=== PATIENT | male | born 1955 | race Two or more races ===

== ENCOUNTER 2022-08-13 14:12 | Emergency (ER) | payer OTHER ==
[~2022-08-13] VITALS: Ht 175.3 cm; Wt 100.0 kg
[2022-08-13 15:50] VITALS: BP 161/79
[2022-08-13] MEDS ORDERED: IBUP800T27 PO ×2 (17:19)
[2022-08-13] MEDS ORDERED: METH750T22 PO (17:19)
[2022-08-13] MEDS ORDERED: IBUPROFEN 800 MG TAB PO ONE (17:30)
== END 2022-08-13 17:47 | disposition home or self-care (01) ==
LOC: EDBD 14:12 → ER 14:12
DX: S46.911A Strain of unspecified muscle, fascia and tendon at shoulder and upper arm level, right arm, initial encounter (principal); V49.9XXA Car occupant (driver) (passenger) injured in unspecified traffic accident, initial encounter; Y93.89 Activity, other specified; Y92.89 Other specified places as the place of occurrence of the external cause; Y99.8 Other external cause status
CPT/HCPCS: 72040; 73030

== ENCOUNTER 2025-03-12 14:12 | Inpatient (IN) | payer OTHER ==
[~2025-03-12] VITALS: Ht 175.3 cm; Wt 113.3 kg
[~2025-03-12 14:12] MED LIST: AMIT-238 PO; DONE1TAB88 PO; EZET-10 PO; MEMA1TAB5 PO; METH-1182 PO; PROP1TAB51 PO; SUMA100T15 PO
--- NOTE | 2025-03-12 14:51 | ED.PDOC ---
HPI (NEURO) HPI Comments HPI: Poor Historian. 70-year-old male brought in by ambulance from home for evaluation of 1 hour of feeling dizzy when he was standing up. Patient describes the dizziness as everything spinning around him. Patient at that time denied any shortness of breath. He only complained of generalized weakness. Denies any chest pain. EMS initial vital signs blood pressure was 103/69. Heart rate 124. Patient's pulse ox was 86% at room air. Patient has history of COPD not on oxygen at home. They placed him on 2 L supplemental oxygen which improved his pulse ox to 99%. We tried to have the patient get up from the [facility] to see if he is still having these symptoms. He attempted to get up and he felt that everything is spinning around him. Past Medical History: CVA with dysphagia and abnormal gait, dementia, Past Surgical History: Allergies to Lipitor. REVIEW OF SYSTEMS: CONSTITUTIONAL: Denies acute: fever, diaphoresis, chills, HEAD: Denies acute: headache, photophobia Eyes: Denies acute: Double vision, vision loss, eye pain, eye discharge. EARS: Denies acute: tinnitus, hearing loss, ear discharge, ear pain, THROAT: Denies acute: sore throat, swelling, difficulty swallowing , pain with swallowing, change in voice. NECK: Denies acute: neck pain, neck swelling, stiff neck. HEART: Denies acute : chest pain, palpitations, LUNGS: Denies acute: SOB, wheezing, cough, hemoptysis ABDOMEN: Denies acute: abdominal pain, Nausea, Vomiting, diarrhea, melena , hematemesis, hematochezia SKIN: Denies acute: rash, redness, lesions, itchiness. EXTREMITIES: Denies acute: calf pain, numbness, tingling, weakness, denies pain in extremity. Denies acute: Low back pain. Neuro: Denies acute: focal neurological deficit, motor or sensory focal neurological deficit, tremors, seizure like activity, confusion, change in mental status, loss of bowel or bladder function, cauda equina like symptoms. : Denies acute: dysuria, hematuria, flank pain, increase in urinary frequency. PSYCH: Denies acute: hallucination, suicidal ideation, homicidal ideation. PHYSICAL EXAM: General: ----mild----acute distress, awake and alert. Head: normocephalic, atraumatic. Neck: supple, trachea is midline, no swelling. History of aphasia status post CVA Throat: Normal phonation. Eyes:, no erythema, no purulent discharge, no proptosis, no icterus. Heart: regular rate, regular rhythm, no significant murmur appreciated. Lungs: no apparent respiratory distress, Able to speak in full sentences. No wheezing, no rhonchi, no crackles. No stridors Clear to auscultation bilaterally. Abdomen: non tender to palpation, non distended, soft, no guarding, no rebound, + bowel sounds. Obese Neuro: Awake, Alert, oriented to name, self, situation, follows commands. GCS=15. Speech is normal. Skin: no petechia, no purpura, no cyanosis, non-pale, not jaundice. Lower extremities: --trace bilateral - Pitting edema no deformity, no focal swelling, no calf TTP. Makes eye contact. moves all four extremities. Face: no apparent facial droop. No nystagmus. No nuchal rigidity, Kernig's sign, Brudzinski's sign, no meningeal signs. ED COURSE: DISCLAIMER: This medical document was created using an electronic medical record system with voice recognition software and computerized dictation system. Although this document has been carefully reviewed, there might still be some phonetic and typographical errors. Occasional wrong-word or "sound-alike" substitutions may have occurred due to the inherent limitations of voice recognition software. These areas are purely typographical due to imperfections of the software programs and do not reflect any compromise in the patient's medical care. Please read the chart carefully and recognize, using context, where these substitutions have occurred. Chief Complaint: General Weakness Time Seen by MD: 14:31 Reviewed Notes: Nurses Notes, Medications, Allergies Information Source: Patient, Emergency Med Personnel Mode of Arrival: EMS Severity: Moderate Headache Severity: None Timing: Hours Duration: Since onset Prehospital treatment: None Past Medical History PAST MEDICAL HISTORY: Denies Surgical History: Denies all surgeries Family History Family History: Reviewed,noncontributory to illness Social History Smoker: Non-Smoker Alcohol: Denies ETOH Use Drugs: Denies Drug Use Lives In: Home Was a procedure done? Was a procedure done?: No Differential Diagnosis (SZ) General Weakness: Anemia, CVA, Dehydration, Electrolyte imbalance, Encephalopathy, Hypoglycemia, Hypotension, Hypovolemia, Labyrinthitis, Meniere's disease, Myasthenia gravis, Myocardial infarction, Pulmonary embolus, Renal failure, Repiratory failure, TIA, VBI, Vertigo: central, Vertigo: peripheral, Vestibular neuronitis, Other (Includes but not limited to thyroid disease, encephalopathy, electrolyte abnormality, sepsis, infection, intracranial pathology, drug adverse effects, arrhythmia, kidney insufficiency, ACS, CVA, malignancy, anemia) X-Ray, Labs, Meds, VS Vital Signs Date Time Temp Pulse Resp B/P (MAP) Pulse Ox O2 Delivery O2 Flow Rate FiO2 03/12/25 20:43 98.6 89 15 95/57 (70) 94 98.6 03/12/25 17:30 99.2 102 18 99/51 (67) 93 99.2 03/12/25 15:11 97/51 (66) 03/12/25 15:04 97.8 109 16 86/57 (67) 90 97.8 03/12/25 14:24 99.3 115 16 106/81 94 99.3 03/12/25 14:14 109 Lab Test 03/12/25 18:31 03/12/25 17:41 03/12/25 17:11 03/12/25 16:52 Range/Units Troponin I High Sensitivity < 3 L < 3 L </=54 ng/L Blood Gas Specimen Type Arterial Blood Gas Sample Site Right radial Blood Gas Patient Temperature 37.0 Arterial Blood Date Drawn [id number] Arterial Blood pH 7.466 H 7.350-7.450 Arterial Blood Partial Pressure CO2 29.4 L 35.0-48.0 mmHg Arterial Blood Partial Pressure O2 64.2 L 83.0-108.0 mmHg Arterial Blood HCO3 20.7 L 21.0-28.0 mmol/L Arterial Blood Oxygen Saturation 93.6 L 94.0-98.0 % Arterial Blood Base Excess -1.7 -2.0-3.0 mmol/L Arterial Blood Oxyhemoglobin 91.9 L 94.0-98.0 % Arterial Blood Carboxyhemoglobin 1.3 0.5-1.5 % Arterial Blood Methemoglobin 0.5 0.0-1.5 % Blake Test Modified Blood Gas Total Hemoglobin 15.20 13.5-17.5 g/dL Blood Gas Liter Flow 2.00 Blood Gas Modality Nasal cannula FiO2 % 28.0 Urine Color Light-yellow Yellow Urine Clarity Clear Clear Urine pH 6.5 5.0-9.0 Urine Specific [place] 1.010 1.001-1.035 Urine Protein Negative Negative Urine Ketones Negative Negative Urine Blood Negative Negative /uL Urine Nitrite Negative Negative Urine Bilirubin Negative Negative Urine Urobilinogen Normal Negative mg/dL Urine Leukocyte Esterase Negative Negative /uL Urine RBC None seen 0 - 3 /hpf Urine Microscopic WBC 1 0-3 /HPF Urine Squamous Epithelial Cells Few <5 /hpf Urine Bacteria None seen None Seen /hpf Urine Glucose Normal Normal mg/dL Test 03/12/25 15:00 Range/Units White Blood Count 13.2 H 4.4-10.8 10^3/uL Red Blood Count 4.63 4.5-5.90 10^6/uL Hemoglobin 14.2 13.5-17.5 g/dL Hematocrit 42.5 41.0-53.0 % Mean Corpuscular Volume 91.8 80.0-100.0 fL Mean Corpuscular Hemoglobin 30.6 28.0-32.0 pg Mean Corpuscular Hemoglobin Concent 33.4 32.0-36.0 g/dL Red Cell Distribution Width 14.0 11.8-14.3 % Platelet Count 146 140-450 10^3/uL Mean Platelet Volume 8.2 6.9-10.8 fL Neutrophils (%) (Auto) 72.9 37.0-80.0 % Lymphocytes (%) (Auto) 19.1 10.0-50.0 % Monocytes (%) (Auto) 7.6 0.0-12.0 % Eosinophils (%) (Auto) 0.1 0.0-7.0 % Basophils (%) (Auto) 0.3 0.0-2.0 % Neutrophils # (Auto) 9.6 H 1.6-8.6 10 ^3/uL Lymphocytes # (Auto) 2.5 0.4-5.4 10 ^3/uL Monocytes # (Auto) 1.0 0-1.3 10 ^3/uL Eosinophils # (Auto) 0 0-0.8 10 ^3/uL Basophils # (Auto) 0 0-0.2 10 ^3/uL Nucleated Red Blood Cells 0.0 % Sodium Level 137 136-145 mmol/L Potassium Level 4.6 3.5-5.1 mmol/L Chloride Level 103 98-107 mmol/L Carbon Dioxide Level 25 20-31 mmol/L Anion Gap 9 5-15 Blood Urea Nitrogen 10 9-23 mg/dL Creatinine 1.05 0.700-1.30 mg/dL Glomerular Filtration Rate Calc 76 >90 mL/min BUN/Creatinine Ratio 9.5 L 10.0-20.0 Serum Glucose 160 H 74-106 mg/dL Lactic Acid Level 1.1 0.4-2.0 mmol/L Calcium Level 9.0 8.7-10.4 mg/dL Total Bilirubin 1.0 0.2-1.0 mg/dL Aspartate Amino Transferase (AST) 23 13-40 U/L Alanine Aminotransferase (ALT) 39 7-40 U/L Alkaline Phosphatase 65 46-116 U/L Troponin I High Sensitivity < 3 L </=54 ng/L B-Type Natriuretic Peptide 37.55 0-100 pg/mL Total Protein 7.0 5.7-8.2 g/dL Albumin 4.3 3.2-4.8 g/dL [place] [address] Ph: [phone] DIAGNOSTIC IMAGING Diagnostic Imaging Report : [id number] Signed PATIENT: JEANCARLOS RUIZ JR ACCT: [id number] UNIT: [id number] : 1955 LOC: ER ROOM / BED: / AGE / SEX: 70 / M ADM STATUS: REG ER SERVICE 1442 ORDERING PHYSICIAN: ASHLEY MORRISON DO PROCEDURE(s): CXRP - CHEST PORTABLE REASON: dizzy, hypoxia ORDER NUMBER(s): [id number], ACCESSION NUMBER(s): [id number] EXAM: XY CHEST PORTABLE Indication: dizzy, hypoxia Technique: Single frontal view of the chest was obtained Comparison: XR CHEST 2 VIEW on DOS: 12/31/24, XR CHEST 2 VIEW on DOS: 09/25/24, CR CHEST 2 VIEW on DOS: 03/21/24, XR CHEST 1 VIEW on DOS: 08/24/23 FINDINGS: Lines and Tubes: None Lungs: No focal consolidation. Right basilar atelectasis. Pleura: No effusion. No pneumothorax. Cardiomediastinal contours: Unremarkable Bones: No acute osseous abnormality. IMPRESSION: No acute cardiopulmonary disease. ATED BY: KIM JOSEPH MD DICTATED DATE/TIME: 03/12/251517 SIGNED BY: KIM JOSEPH MD SIGNED DATE/TIME: 03/12/251517 CC: Time of 1ST Reevaluation: 15:01 Reevaluation 1ST: Unchanged Time of 2ND Reevaluation: 20:08 (THE CASE WAS DISCUSSED WITH THE ADMITTING TEAM (HPI, PHYSICAL EXAM, LABS AND DIAGNOSTIC TESTS THAT WERE AVAILABLE AT THE TIME OF DISPOSITION, ED COURSE, TREATMENT PLAN) ON THE PHONE. THEY AGREED TO ADMIT THE PATIENT TO THEIR SERVICE AND ASSUME CARE OF THIS PATIENT FROM THIS POINT [facility]. NURSE PRACTITIONER DANTE . HE REQUESTED TO GIVE THE PATIENT 500 CC OF NORMAL SALINE.) Patient Education/Counseling: Diagnosis, Treatment Family Education/Counseling: No Family Present Comments MDM: patient presented with the above HPI.---generalized weakness/dizziness---workup was initiated. patient was found with the above mentioned diagnosis. the following medications were ordered: please refer to order lists of meds and tests obtained by myself Dr. Morrison. Patient ED course and VS have been stabilized. Patient has been reassessed in the ED and remained in a stable condition. Pertinent incidental findings were discussed with the patient and/or family. Patient/family voices understanding and is agreeable with plan. Patient has been observed in the ED adequate length of time to insure improvemen t/stability. Escalation of care considered: Consideration of escalation to observation or admission Patient was found with hypoxemia here in the ED requiring supplemental oxygen. Respiratory workup was initiated. Patient was ADMITTED to the medicine team for further evaluation and treatment of their presentation. All the reports of any imaging studies that were ordered by myself were reviewed by myself. Departure 1 Departure Time of Disposition: 14:51 Impression: Primary Impression: Hypoxemia Additional Impressions: Vertigo Generalized weakness Disposition: ADMITTED INPATIENT Admit to: [facility] Condition: Guarded Additional Instructions: [place] [address] Ph: [phone] DIAGNOSTIC IMAGING Diagnostic Imaging Report : [id number] Signed PATIENT: JEANCARLOS RUIZ JR ACCT: [id number] UNIT: [id number] : 1955 LOC: ER ROOM / BED: / AGE / SEX: 70 / M ADM STATUS: REG ER SERVICE 1442 ORDERING PHYSICIAN: ASHLEY MORRISON DO PROCEDURE(s): CXRP - CHEST PORTABLE REASON: dizzy, hypoxia ORDER NUMBER(s): [id number], ACCESSION NUMBER(s): [id number] EXAM: XY CHEST PORTABLE Indication: dizzy, hypoxia Technique: Single frontal view of the chest was obtained Comparison: XR CHEST 2 VIEW on DOS: 12/31/24, XR CHEST 2 VIEW on DOS: 09/25/24, CR CHEST 2 VIEW on DOS: 03/21/24, XR CHEST 1 VIEW on DOS: 08/24/23 FINDINGS: Lines and Tubes: None Lungs: No focal consolidation. Right basilar atelectasis. Pleura: No effusion. No pneumothorax. Cardiomediastinal contours: Unremarkable Bones: No acute osseous abnormality. IMPRESSION: No acute cardiopulmonary disease. ATED BY: KIM JOSEPH MD DICTATED DATE/TIME: 03/12/251517 SIGNED BY: KIM JOSEPH MD SIGNED DATE/TIME: 03/12/251517 CC: e-Prescriptions Clopidogrel Bisulfate (CLOPIDOGREL) 75 Mg Tab 75 MG PO DAILY for 20 Days, #20 TAB Prov: GRACIA BUTTS MD 03/14/25 Aspirin (Aspir-Low) 81 Mg Tab 81 MG PO DAILY, #60 TAB Prov: GRACIA BUTTS MD 03/14/25 Discharged With: Self Critical Care Note Critical Care Time?: No Heart Score Heart Score: Heart Score Response (Comments) Value History N/A 0 EKG N/A 0 Age N/A 0 Risk Factors N/A 0 Troponin N/A 0 Total 0 I personally scribed for ASHLEY MORRISON DO ([email or web address]) on 03/12/25 at 15:59. Electronically submitted by Damaris Curran ([email or web address]). I personally scribed for ASHLEY MORRISON DO ([email or web address]) on 03/12/25 at 15:59. Electronically submitted by Damaris Curran ([email or web address]). ASHLEY MORRISON DO Mar 12, 2025 14:51
--- NOTE | 2025-03-12 14:55 | ECG ---
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
[2025-03-12] MEDS: MECLIZINE HCL 25 MG TAB PO ONE (15:11)
[2025-03-12 15:19] LABS: Hematocrit 42.5 % (41.0-53.0); Hemoglobin 14.2 g/dL (13.5-17.5); Mean Corpuscular Hemoglobin 30.6 pg (28.0-32.0); Mean Corpuscular Volume 91.8 fL (80.0-100.0); Nucleated Red Blood Cells % 0.0 %
--- NOTE | 2025-03-12 15:21 | DVH ---
EXAM: XY CHEST PORTABLE Indication: dizzy, hypoxia Technique: Single frontal view of the chest was obtained Comparison: XR CHEST 2 VIEW on DOS: 12/31/24, XR CHEST 2 VIEW on DOS: 09/25/24, CR CHEST 2 VIEW on DOS: 03/21/24, XR CHEST 1 VIEW on DOS: 08/24/23 FINDINGS: Lines and Tubes: None Lungs: No focal consolidation. Right basilar atelectasis. Pleura: No effusion. No pneumothorax. Cardiomediastinal contours: Unremarkable Bones: No acute osseous abnormality. IMPRESSION: No acute cardiopulmonary disease.
[2025-03-12 15:32] LABS: Alanine Aminotransferase 39 U/L (7-40); Alkaline Phosphatase 65 U/L (46-116); Anion Gap 9 (5-15); BUN/Creatinine Ratio 9.5 (10.0-20.0); Blood Urea Nitrogen 10 mg/dL (9-23); Calcium 9.0 mg/dL (8.7-10.4); Carbon Dioxide 25 mmol/L (20-31); Chloride 103 mmol/L (98-107); Potassium 4.6 mmol/L (3.5-5.1); Sodium 137 mmol/L (136-145); Total Protein 7.0 g/dL (5.7-8.2)
[2025-03-12 15:33] LABS: Albumin 4.3 g/dL (3.2-4.8); Bilirubin, Total 1.0 mg/dL (0.2-1.0); Glucose 160 mg/dL (74-106)
[2025-03-12 17:50] LABS: Base Excess -1.7 mmol/L (-2.0-3.0)
[2025-03-12] MEDS ORDERED: SODIUM CHLORIDE 0.9% 500 ML IV ONE (20:15)
[2025-03-12] MEDS: SODIUM CHLORIDE 0.9% 500 ML IV ONE (20:15)
--- NOTE | 2025-03-12 22:21 | DVH ---
CT HEAD WITHOUT CONTRAST INDICATION: dizziness EXAM DATE: 03/12/2025 09:45 PM COMPARISON: CT BRAIN/HEAD WO on DOS: 11/16/24, MR BRAIN W/O on DOS: 09/28/24, CT BRAIN/HEAD WO on DOS: 09/21/24, XR SKULL 3 VIEW OR LESS on DOS: 08/15/24, CT BRAIN on DOS: 09/09/23 RADIATION DOSE: CTDIvol: 64.96 mGy, DLP: 64.96 mGy*cm PROCEDURE: CT scans of the head were obtained from the vertex to the skull base. Sagittal and coronal reconstructions were provided. All CT scans at this medical facility are performed using dose modulation techniques as appropriate t o a performed exam including the following: Automated exposure control was utilized; adjustment of th e MA and/or KV according to patient size; and use of iterative reconstruction technique. FINDINGS: Motion and streak artifact mildly degrading evaluation. Chronic right frontal infarct. Chronic right parieto-occipital infarct with associated serpiginous hyperdensity. No acute territorial infarct, large intracranial hemorrhage, or mass effect. There are global involut ional changes with compensatory prominence of the ventricles and sulci. Patchy periventricular and warren bcortical white matter hypoattenuation is nonspecific but may be related to small vessel ischemic dis ease. The orbits are normal. The paranasal sinuses and mastoid air cells are clear. The osseous structures are unremarkable. IMPRESSION: 1. No acute territorial infarct, large intracranial hemorrhage, or mass effect. 2. Chronic right parieto-occipital infarct with associated serpiginous hyperdensity, described on alexey or report though no images are available for comparison. An element of petechial bleeding cannot be entirely excluded. If clinically indicated, MRI may be beneficial in further assessment. 3. Age-related involutional changes. Chronic ischemic changes as detailed.
[2025-03-12] MEDS ORDERED: ONDANSETRON HCL 4 MG/2 ML VIAL IV PRN (23:00)
[2025-03-12] MEDS ORDERED: ACETAMINOPHEN 325 MG TAB PO PRN (23:00)
[2025-03-12] MEDS ORDERED: MORPHINE SULFATE INJ 2 MG/ml SYRG IV PRN ×2 (23:00)
[2025-03-12] MEDS ORDERED: NITROGLYCERIN 0.4 MG SL TAB SL PRN (23:00)
[2025-03-12 23:21] LABS: Urine Protein, UAD Negative (Negative)
[2025-03-13] VITALS (18 sets, daily range): BP systolic 79–123; BP diastolic 37–82; PULSE 70–104; RESP 17–26; TEMP 97.6–98.4; O2SAT 91–97
[2025-03-13] MEDS: SODIUM CHLORIDE 0.9% 1,000 ML IV SCH ×2 (00:17→16:14)
[2025-03-13] MEDS ORDERED: ALBUTEROL SULF 2.5 MG/0.5ML(0.5%) NEB SOLN NEB PRN (01:00)
[2025-03-13] MEDS ORDERED: IPRATROPIUM BROM 0.5 MG/2.5ML INH SOL NEB PRN (01:00)
--- NOTE | 2025-03-13 01:12 | DVHHP2 ---
DANTE LONDON [employer]EDER 03/13/25 0112: History of Present Illness Reason for Visit: Dizziness History of Present Illness 70-year-old male with past medical history of CVA with peripheral visual def icits, non oxygen dependent COPD presents with complaints of dizziness since the morning. Patient also endorses at 5:00 a.m. he had difficulty moving his left arm. However that has resolved at this time. On arrival to the emergency department patient was noted to be tachycardic in the 120s and hypoxic with an oxygen saturation in the 86% on room air, Requiring supplemental oxygen. Patient states that he is having difficulty walking due to dizziness endorses that at his baseline he is able to ambulate independently. Also endorses that he was recently diagnosed with a cerebral blood clot about 3-4 months ago. And is being followed by Dr. Jamila Herron neurologist. During the emergency department evaluation CMP unremarkable Na 137, K4.6, BUN 10, creatinine 1.05, BNP 37.5, troponin negative 08/20/. CBC W13.2, H&H 14.2/42.5, PLT 146 UA negative for infection. CXR no acute cardiopulmonary disease. Head CT impression reads no acute territorial infarct, large intracranial hemorrhage or mass effect. Chronic right parieto-occipital infarct with associated serpiginous hyperdensity, described on prior report though no images are available for comparison. An element of petechial bleeding can not be entirely excluded if clinically indicated, MRI may be beneficial to further of assessment. Age-related involutional changes final ischemic changes as detailed. At this time there are no complaints fevers, chills, falls, unilateral deficits, syncope, chest pain, nausea, vomiting. 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 Dyspnea, Edema, Other Gastrointestinal: No: Nausea, Vomiting, Abdominal Pain, Diarrhea, Constipation, Melena, Hematochezia, Other Genitourinary: No Dysuria, No Frequency, No Incontinence, No Hematuria, No Retention, No Other Musculoskeletal: No: other, neck pain, shoulder pain, arm pain, back pain, hand pain, leg pain, foot pain Skin: No: Rash, Lesions, Jaundice, Bruising, Other Neurological: No: Weakness, Numbness, Incoordination, Change in speech, Confusion, Seizures, Other Allergies: Coded Allergies: Atorvastatin (Verified Allergy, Unknown, 03/12/25) Medications Current Medications Medications Dose Ordered Sig/Suzanne Route Start Time Stop Time Status Last Admin Dose Admin Sodium Chloride 1,000 ml @ 50 mls/hr Q20H IV 03/12/25 23:00 03/13/25 18:59 Acetaminophen 650 mg Q6HP PRN PO 03/12/25 23:00 Ondansetron HCl 4 mg Q4HP PRN IV 03/12/25 23:00 Morphine Sulfate 2 mg Q4HPRN PRN IV 03/12/25 23:00 Nitroglycerin 0.4 mg Q5MINP PRN SL 03/12/25 23:00 Morphine Sulfate 2 mg Q30M PRN IV 03/12/25 23:00 Meclizine HCl 25 mg Q8HPRN PRN PO 03/12/25 23:00 Donepezil HCl 10 mg QPM PO 03/13/25 18:00 Memantine 10 mg BID PO 03/13/25 10:00 Ipratropium [place] 0.5 mg Q4HPRN PRN NEB 03/13/25 01:00 Albuterol 2.5 mg Q4HPRN PRN NEB 03/13/25 01:00 Exam Vital Signs Vital Signs Date Time Temp Pulse Resp B/P (MAP) Pulse Ox O2 Delivery O2 Flow Rate FiO2 03/12/25 23:22 98.4 62 19 93/64 (74) 94 98.4 General Appearance: Alert, Oriented X3, mild distress HEENT: Atraumatic, PERRLA, EOMI Respiratory: Other (coarse with increased respiratory effort) Cardiovascular: Regular rate, Normal S1, Normal S2 Abdominal: Normal bowel sounds, Soft, No tenderness Extremities: No cyanosis, No edema Skin: No rashes, No breakdown Neuro: Normal speech Psych/Mental Status: Mental status NL, Mood NL Labs/Xrays Labs Test 03/12/25 18:31 03/12/25 17:41 03/12/25 16:52 03/12/25 15:00 Range/Units Troponin I High Sensitivity < 3 L </=54 ng/L Blood Gas Specimen Type Arterial Blood Gas Sample Site Right radial Blood Gas Patient Temperature 37.0 Arterial Blood Date Drawn [id number] Arterial Blood pH 7.466 H 7.350-7.450 Arterial Blood Partial Pressure CO2 29.4 L 35.0-48.0 mmHg Arterial Blood Partial Pressure O2 64.2 L 83.0-108.0 mmHg Arterial Blood HCO3 20.7 L 21.0-28.0 mmol/L Arterial Blood Oxygen Saturation 93.6 L 94.0-98.0 % Arterial Blood Base Excess -1.7 -2.0-3.0 mmol/L Arterial Blood Oxyhemoglobin 91.9 L 94.0-98.0 % Arterial Blood Carboxyhemoglobin 1.3 0.5-1.5 % Arterial Blood Methemoglobin 0.5 0.0-1.5 % Blake Test Modified Blood Gas Total Hemoglobin 15.20 13.5-17.5 g/dL Blood Gas Liter Flow 2.00 Blood Gas Modality Nasal cannula FiO2 % 28.0 Urine Color Light-yellow Yellow Urine Clarity Clear Clear Urine pH 6.5 5.0-9.0 Urine Specific [place] 1.010 1.001-1.035 Urine Protein Negative Negative Urine Ketones Negative Negative Urine Blood Negative Negative /uL Urine Nitrite Negative Negative Urine Bilirubin Negative Negative Urine Urobilinogen Normal Negative mg/dL Urine Leukocyte Esterase Negative Negative /uL Urine RBC None seen 0 - 3 /hpf Urine Microscopic WBC 1 0-3 /HPF Urine Squamous Epithelial Cells Few <5 /hpf Urine Bacteria None seen None Seen /hpf Urine Glucose Normal Normal mg/dL White Blood Count 13.2 H 4.4-10.8 10^3/uL Red Blood Count 4.63 4.5-5.90 10^6/uL Hemoglobin 14.2 13.5-17.5 g/dL Hematocrit 42.5 41.0-53.0 % Mean Corpuscular Volume 91.8 80.0-100.0 fL Mean Corpuscular Hemoglobin 30.6 28.0-32.0 pg Mean Corpuscular Hemoglobin Concent 33.4 32.0-36.0 g/dL Red Cell Distribution Width 14.0 11.8-14.3 % Platelet Count 146 140-450 10^3/uL Mean Platelet Volume 8.2 6.9-10.8 fL Neutrophils (%) (Auto) 72.9 37.0-80.0 % Lymphocytes (%) (Auto) 19.1 10.0-50.0 % Monocytes (%) (Auto) 7.6 0.0-12.0 % Eosinophils (%) (Auto) 0.1 0.0-7.0 % Basophils (%) (Auto) 0.3 0.0-2.0 % Neutrophils # (Auto) 9.6 H 1.6-8.6 10 ^3/uL Lymphocytes # (Auto) 2.5 0.4-5.4 10 ^3/uL Monocytes # (Auto) 1.0 0-1.3 10 ^3/uL Eosinophils # (Auto) 0 0-0.8 10 ^3/uL Basophils # (Auto) 0 0-0.2 10 ^3/uL Nucleated Red Blood Cells 0.0 % Sodium Level 137 136-145 mmol/L Potassium Level 4.6 3.5-5.1 mmol/L Chloride Level 103 98-107 mmol/L Carbon Dioxide Level 25 20-31 mmol/L Anion Gap 9 5-15 Blood Urea Nitrogen 10 9-23 mg/dL Creatinine 1.05 0.700-1.30 mg/dL Glomerular Filtration Rate Calc 76 >90 mL/min BUN/Creatinine Ratio 9.5 L 10.0-20.0 Serum Glucose 160 H 74-106 mg/dL Lactic Acid Level 1.1 0.4-2.0 mmol/L Calcium Level 9.0 8.7-10.4 mg/dL Total Bilirubin 1.0 0.2-1.0 mg/dL Aspartate Amino Transferase (AST) 23 13-40 U/L Alanine Aminotransferase (ALT) 39 7-40 U/L Alkaline Phosphatase 65 46-116 U/L B-Type Natriuretic Peptide 37.55 0-100 pg/mL Total Protein 7.0 5.7-8.2 g/dL Albumin 4.3 3.2-4.8 g/dL SEPSIS Sepsis Screen Date sepsis recognized/suspect: Mar 12, 2025 Time Sepsis recognized/suspect: 1414 Recent Procedure: No On Antibiotic Therapy: No Respiratory Rate >20: No Heart Rate >90: Yes Temp<36 C (96.8 F) or >38.3 C: No SBP <90 or MAP <65 mmHG: No New Acute Mental Status Change: No Is the patient on CPAP, BIPAP,: No Physician Orders Abg W/ Co-Ox (03/12/25 17:35) Head Without Contrast (03/12/25 20:17) Admit (03/12/25:00) Code Status (03/12/25:) Vital Signs .PER UNIT PROTOCOL (03/12/25:) Review Orders With Adm.Md (03/12/25:) Encourage Activity As Tolerate (03/12/25:) Sodium Chloride 0.9% (03/12/25:00) Oxygen By Face Mask (03/12/25:00) Acetaminophen Tablet (Tylenol Tablet) (03/12/25:00) Notify Md Of Changes From Base (03/12/25:00) Advance Directive (03/12/25:00) Basic Metabolic Panel (03/13/25 05:00) Basic Metabolic Panel (03/14/25 05:00) Basic Metabolic Panel (03/15/25 05:00) Basic Metabolic Panel (03/16/25 05:00) Complete Blood Count (03/13/25 05:00) Complete Blood Count (03/14/25 05:00) Complete Blood Count (03/15/25 05:00) Complete Blood Count (03/16/25 05:00) Patient Condition (03/12/25:00) Allergies (03/12/25:00) Ondansetron Hcl (Zofran) (03/12/25:00) Morphine Sulfate Injection (03/12/25:00) Nitroglycerin Sublingual (Ntrostat Subli (03/12/25:00) Morphine Sulfate Injection (03/12/25:00) Stat Ekg For Chest Pain (03/12/25:00) Notify Md Of Changes From Base (03/12/25:00) Carburetor Expert For 24 Hours (03/12/25:00) Emergency Dysrhythmia Protocol (03/12/25 23:00) Rhythm Strips Once Every Shift (03/12/25 23:00) Oxygen By Nasal Cannula (03/12/25 23:00) Brain Head Wo Contrast (03/12/25 23:00) Orthostatic Vital Signs (03/12/25 ) Orthostatic Vital Signs (03/13/25 ) Orthostatic Vital Signs (03/14/25 ) Orthostatic Vital Signs (03/15/25 ) Orthostatic Vital Signs (03/16/25 ) Orthostatic Vital Signs (03/17/25 ) Meclizine Tablet (Antivert Tablet) (03/12/25 23:00) Donepezil Tablet (Aricept Tablet) (03/13/25 18:00) Memantine Tablet (Namenda Tablet) (03/13/25 10:00) Pt Request For Service (03/12/25 23:00) Soft Diet (03/13/25 Breakfast) * Neurology Consult (03/13/25 00:47) *Consult (03/13/25 00:47) Ipratropium Medneb (Atrovent Medneb) (03/13/25 01:00) Albuterol Medneb (Ventolin Medneb) (03/13/25 01:00) Vital Signs Date Time Temp Pulse Resp B/P (MAP) Pulse Ox O2 Delivery O2 Flow Rate FiO2 03/12/25 23:22 98.4 62 19 93/64 (74) 94 98.4 03/12/25 20:43 98.6 89 15 95/57 (70) 94 98.6 03/12/25 17:30 99.2 102 18 99/51 (67) 93 99.2 Laboratory Tests Test 03/12/25 15:00 Lactic Acid Level 1.1 mmol/L (0.4-2.0) White Blood Count 13.2 10^3/uL (4.4-10.8) H Medications Medications Dose Ordered Sig/Suzanne Route Start Time Stop Time Status Last Admin Dose Admin Meclizine HCl 25 mg ONCE ONCE PO 03/12/25 14:45 03/12/25 14:46 DC 03/12/25 15:11 25 MG Sodium Chloride 500 ml @ 500 mls/hr Q1H ONCE IV 03/12/25 20:15 03/12/25 21:14 DC 03/12/25 20:15 500 MLS/HR Assessment/Plan Assessment/Plan Dizziness Acute on chronic respiratory failure with hypoxia COPD exacerbation HX CVA Plan Admit telemetry Neurology consult. MRI brain. Physical therapy evaluation. Orthostatic vital signs. Pulmonology consult. Bronchodilators. Supplemental oxygen to maintain O2 saturation greater than 93%. Incentive spirometry. IVF GI ppx protonix / DVT ppx SCD Plan discussed with: Patient, Spouse My Orders Orders - DANTE LONDON NP Procedure Category Date Status Time Head Without Contrast CT 03/12/25 Resulted 20:17 Admit ADMIT 03/12/25 Transmitted 23:00 Code Status CODE 03/12/25 Transmitted 23:00 Vital Signs RAYMOND 03/12/25 In Process 23:00 Review Orders With RAYMOND 03/12/25 In Process Adm. 23:00 Encourage Activity As RAYMOND 03/12/25 In Process Tolerate 23:00 Sodium Chloride 0.9% PHA 03/12/25 In Process 23:00 Oxygen By Face Mask RT 03/12/25 Transmitted 23:00 Acetaminophen Tablet PHA 03/12/25 In Process (Tylenol Tablet) 23:00 Notify Of Changes RAYMOND 03/12/25 In Process From Base 23:00 Advance Directive RAYMOND 03/12/25 In Process 23:00 Basic Metabolic Panel LAB 03/13/25 Logged 05:00 Basic Metabolic Panel LAB 03/14/25 Verified 05:00 Basic Metabolic Panel LAB 03/15/25 Verified 05:00 Basic Metabolic Panel LAB 03/16/25 Verified 05:00 Complete Blood Count LAB 03/13/25 Logged 05:00 Complete Blood Count LAB 03/14/25 Verified 05:00 Complete Blood Count LAB 03/15/25 Verified 05:00 Complete Blood Count LAB 03/16/25 Verified 05:00 Patient Condition ORDERS 03/12/25 Transmitted 23:00 Allergies RAYMOND 03/12/25 In Process 23:00 Ondansetron Hcl PHA 03/12/25 In Process (Zofran) 23:00 Morphine Sulfate PHA 03/12/25 In Process Injection 23:00 Nitroglycerin PHA 03/12/25 In Process Sublingual (Ntrostat 23:00 Morphine Sulfate PHA 03/12/25 In Process Injection 23:00 Stat Ekg For Chest RAYMOND 03/12/25 In Process Pain 23:00 Notify Of Changes RAYMOND 03/12/25 In Process From Base 23:00 Carburetor Expert For RAYMOND 03/12/25 In Process 24 Hours 23:00 Emergency Dysrhythmia RAYMOND 03/12/25 In Process Protocol 23:00 Rhythm Strips Once RAYMOND 03/12/25 In Process Every Shift 23:00 Oxygen By Nasal RT 03/12/25 Transmitted Cannula 23:00 Brain Head Wo Contrast MRI 03/12/25 Logged 23:00 Orthostatic Vital ED NURSING 03/12/25 Transmitted Signs Orthostatic Vital ED NURSING 03/13/25 Transmitted Signs Orthostatic Vital ED NURSING 03/14/25 Transmitted Signs Orthostatic Vital ED NURSING 03/15/25 Transmitted Signs Orthostatic Vital ED NURSING 03/16/25 Transmitted Signs Orthostatic Vital ED NURSING 03/17/25 Transmitted Signs Meclizine Tablet PHA 03/12/25 In Process (Antivert Tablet) 23:00 Donepezil Tablet PHA 03/13/25 In Process (Aricept Tablet) 18:00 Memantine Tablet PHA 03/13/25 In Process (Namenda Tablet) 10:00 Pt Request For Service PT 03/12/25 Logged 23:00 Soft Diet DIET 03/13/25 Transmitted Breakfast * Neurology Consult CONS 03/13/25 Transmitted 00:47 *Consult CONS 03/13/25 Transmitted 00:47 Ipratropium Medneb PHA 03/13/25 In Process (Atrovent Medneb) 01:00 Albuterol Medneb PHA 03/13/25 In Process (Ventolin Medneb) 01:00 Date of Service: Mar 13, 2025 Billing Provider: GRCAIA BUTTS MD Common Visit Codes: NOT BILLABLE GRACIA BUTTS MD 03/13/25 1559: Review of Systems Allergies: Coded Allergies: Atorvastatin (Verified Allergy, Unknown, 03/12/25) Additional Comments Additional Comments Additional Comments 70-year-old male with a known history of COPD, previous history of tobacco use disorder 50 pack year history quit two years ago, Alzheimer dementia who presented to the hospital with a dizziness and vertigo since 11:30 a.m. yesterday found to have 1. Dizziness with orthostatic hypotension 2. Acute on chronic CVA without any residual deficit 3. COPD currently not in exacerbation 4. Alzheimer dementia 5. Previous history of tobacco use disorder quit two years ago -MRI consistent with a acute infarct on chronic CVA in the right temp for occipital temporal region -aspirin and Plavix, patient is allergic to atorvastatin(get severe visual hallucinations), would will not recommend any atorvastatin for now but chances of recurrent CVA is there as patient is not on statin patient understand verbalized understanding and does not want take atorvastatin at this time. -[facility] neurology Dr. Jamila Herron was called who recommended the same. Patient is currently agrees to this current plan of care. -IV fluids , thigh-high Derrick hose upon discharge. DANTE LONDON NP Mar 13, 2025 01:12 GRACIA BUTTS MD Mar 13, 2025 15:59
[2025-03-13 06:26] LABS: Hematocrit 41.6 % (41.0-53.0); Hemoglobin 14.1 g/dL (13.5-17.5); Mean Corpuscular Hemoglobin 31.3 pg (28.0-32.0); Mean Corpuscular Volume 92.5 fL (80.0-100.0); Nucleated Red Blood Cells % 0.1 %
[2025-03-13 06:28] LABS: Chloride 105 mmol/L (98-107); Sodium 139 mmol/L (136-145)
[2025-03-13 06:29] LABS: Anion Gap 8 (5-15); Carbon Dioxide 26 mmol/L (20-31)
[2025-03-13 06:30] LABS: Calcium 9.1 mg/dL (8.7-10.4)
[2025-03-13 06:31] LABS: Potassium 5.1 mmol/L (3.5-5.1)
[2025-03-13 06:34] LABS: BUN/Creatinine Ratio 9.1 (10.0-20.0)
[2025-03-13 06:37] LABS: Blood Urea Nitrogen 9 mg/dL (9-23); Glucose 124 mg/dL (74-106)
--- NOTE | 2025-03-13 08:44 | DVH ---
CLINICAL HISTORY: dizziness TECHNIQUE: Routine multiplanar imaging of the brain was performed without gadolinium contrast. COMPARISON: CT HEAD WITHOUT CONTRAST on DOS: 03/12/25, CT BRAIN/HEAD WO on DOS: 11/16/24, MR BRAIN W/O on DOS: 09/28/24, CT BRAIN/HEAD WO on DOS: 09/21/24, CT BRAIN on DOS: 09/09/23 FINDINGS: There is a small acute on chronic right occipital temporal infarct with laminar necrosis. There is mild brain volume loss. There is an old right frontal lobe infarct. There is no evidence for mass, mass effect, or extra-axial fluid collection. There is no hydrocephalu s or midline shift. The cerebral sulci and subarachnoid cisterns are not effaced. The imaged paranasal sinuses are clear. The globes are intact. The intracranial flow voids are maintained. IMPRESSION: Small acute on chronic right occipitotemporal infarct with laminar necrosis. Small old right frontal lobe infarct.
[2025-03-13] MEDS: MEMANTINE HCL 5 MG TAB PO SCH (10:09)
--- NOTE | 2025-03-13 12:27 | DVHINCON2 ---
Date of service: Mar 13, 2025 History of Present Illness 70-year-old male with past medical history of CVA with peripheral visual deficits, non oxygen dependent COPD presents with complaints of dizziness since the morning. Patient also endorses at 5:00 a.m. he had difficulty moving his left arm. However that has resolved at this time. On arrival to the emergency department patient was noted to be tachycardic in the 120s and hypoxic with an oxygen saturation in the 86% on room air, Requiring supplemental oxygen. Patient states that he is having difficulty walking due to dizziness endorses that at his baseline he is able to ambulate independently. Also endorses that he was recently diagnosed with a cerebral blood clot about 3-4 months ago. And is being followed by Dr. Jamila Herron neurologist. During the emergency department evaluation CMP unremarkable Na 137, K4.6, BUN 10, creatinine 1.05, BNP 37.5, troponin negative . CBC W13.2, H&H 14.2/42.5, PLT 146 UA negative for infection. CXR no acute cardiopulmonary disease. Head CT impression reads no acute territorial infarct, large intracranial hemorrhage or mass effect. Chronic right parieto-occipital infarct with associated serpiginous hyperdensity, described on prior report though no images are available for comparison. An element of petechial bleeding can not be entirely excluded if clinically indicated, MRI may be beneficial to further of assessment. Age-related involutional changes final ischemic changes as detailed. At this time there are no complaints fevers, chills, falls, unilateral deficits, syncope, chest pain, nausea, vomiting. 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 Smoke: No ALCOHOL: none Drugs: None Lives: with Family Past Medical History reviewed Family History: TIAs G8 MOTHER Allergies: Coded Allergies: Atorvastatin (Verified Allergy, Unknown, 03/12/25) Home Meds Active Scripts Methocarbamol (Methocarbamol) 750 Mg Tab, 750 MG PO QHSP PRN, #20 TAB Prov:MIRZA INFANTE 08/13/22 Current Medications Current Medications Medications (Trade) Dose Ordered Sig/Suzanne Route PRN Reason Start Time Stop Time Status Last Admin Sodium Chloride 1,000 ml @ 50 mls/hr Q20H IV 03/12/25 23:00 03/13/25 18:59 Acetaminophen (Tylenol Tablet) 650 mg Q6HP PRN PO PAIN SCALE 1-3 OR TEMP>100.4 03/12/25 23:00 Ondansetron HCl (Zofran) 4 mg Q4HP PRN IV NAUSEA / VOMITING 03/12/25 23:00 Morphine Sulfate 2 mg Q4HPRN PRN IV SEVERE PAIN (7-10 PAIN SCALE) 03/12/25 23:00 Nitroglycerin (Ntrostat Sublingual) 0.4 mg Q5MINP PRN SL FOR CHEST PAIN 03/12/25 23:00 Morphine Sulfate 2 mg Q30M PRN IV FOR CHEST PAIN 03/12/25 23:00 Meclizine HCl (Antivert Tablet) 25 mg Q8HPRN PRN PO dizziness 03/12/25 23:00 Donepezil HCl (Aricept Tablet) 10 mg QPM PO 03/13/25 18:00 Memantine (Namenda Tablet) 10 mg BID PO 03/13/25 10:00 03/13/25 10:09 Ipratropium [place] (Atrovent Medneb) 0.5 mg Q4HPRN PRN NEB SHORTNESS OF BREATH 03/13/25 01:00 Albuterol (Ventolin Medneb) 2.5 mg Q4HPRN PRN NEB SHORTNESS OF BREATH 03/13/25 01:00 Ceftriaxone Sodium 50 ml @ 100 mls/hr DAILY@09 IV 03/13/25 09:00 03/13/25 10:09 Review of Systems 10 pt ros otherwise negative Vital Signs Vital Signs Date Time Temp Pulse Resp B/P (MAP) Pulse Ox O2 Delivery O2 Flow Rate FiO2 03/13/25 09:00 97.9 84 17 112/70 (84) 95 97.9 03/13/25 06:47 Nasal Cannula* 2 28 Physical Exam nad s1 s2 rrr ctab soft nt/nd no edema obesity Labs/Diagnostic Data Labs Test 03/13/25 05:58 03/12/25 18:31 03/12/25 17:41 03/12/25 16:52 Range/Units White Blood Count 11.4 H 4.4-10.8 10^3/uL Red Blood Count 4.50 4.5-5.90 10^6/uL Hemoglobin 14.1 13.5-17.5 g/dL Hematocrit 41.6 41.0-53.0 % Mean Corpuscular Volume 92.5 80.0-100.0 fL Mean Corpuscular Hemoglobin 31.3 28.0-32.0 pg Mean Corpuscular Hemoglobin Concent 33.9 32.0-36.0 g/dL Red Cell Distribution Width 14.3 11.8-14.3 % Platelet Count 146 140-450 10^3/uL Mean Platelet Volume 8.1 6.9-10.8 fL Neutrophils (%) (Auto) 51.3 37.0-80.0 % Lymphocytes (%) (Auto) 37.6 10.0-50.0 % Monocytes (%) (Auto) 9.6 0.0-12.0 % Eosinophils (%) (Auto) 1.2 0.0-7.0 % Basophils (%) (Auto) 0.3 0.0-2.0 % Neutrophils # (Auto) 5.8 1.6-8.6 10 ^3/uL Lymphocytes # (Auto) 4.3 0.4-5.4 10 ^3/uL Monocytes # (Auto) 1.1 0-1.3 10 ^3/uL Eosinophils # (Auto) 0.1 0-0.8 10 ^3/uL Basophils # (Auto) 0 0-0.2 10 ^3/uL Nucleated Red Blood Cells 0.1 % Sodium Level 139 136-145 mmol/L Potassium Level 5.1 3.5-5.1 mmol/L Chloride Level 105 98-107 mmol/L Carbon Dioxide Level 26 20-31 mmol/L Anion Gap 8 5-15 Blood Urea Nitrogen 9 9-23 mg/dL Creatinine 0.99 0.700-1.30 mg/dL Glomerular Filtration Rate Calc 82 >90 mL/min BUN/Creatinine Ratio 9.1 L 10.0-20.0 Serum Glucose 124 H 74-106 mg/dL Calcium Level 9.1 8.7-10.4 mg/dL Troponin I High Sensitivity < 3 L </=54 ng/L Blood Gas Specimen Type Arterial Blood Gas Sample Site Right radial Blood Gas Patient Temperature 37.0 Arterial Blood Date Drawn [id number] Arterial Blood pH 7.466 H 7.350-7.450 Arterial Blood Partial Pressure CO2 29.4 L 35.0-48.0 mmHg Arterial Blood Partial Pressure O2 64.2 L 83.0-108.0 mmHg Arterial Blood HCO3 20.7 L 21.0-28.0 mmol/L Arterial Blood Oxygen Saturation 93.6 L 94.0-98.0 % Arterial Blood Base Excess -1.7 -2.0-3.0 mmol/L Arterial Blood Oxyhemoglobin 91.9 L 94.0-98.0 % Arterial Blood Carboxyhemoglobin 1.3 0.5-1.5 % Arterial Blood Methemoglobin 0.5 0.0-1.5 % Blake Test Modified Blood Gas Total Hemoglobin 15.20 13.5-17.5 g/dL Blood Gas Liter Flow 2.00 Blood Gas Modality Nasal cannula FiO2 % 28.0 Urine Color Light-yellow Yellow Urine Clarity Clear Clear Urine pH 6.5 5.0-9.0 Urine Specific [place] 1.010 1.001-1.035 Urine Protein Negative Negative Urine Ketones Negative Negative Urine Blood Negative Negative /uL Urine Nitrite Negative Negative Urine Bilirubin Negative Negative Urine Urobilinogen Normal Negative mg/dL Urine Leukocyte Esterase Negative Negative /uL Urine RBC None seen 0 - 3 /hpf Urine Microscopic WBC 1 0-3 /HPF Urine Squamous Epithelial Cells Few <5 /hpf Urine Bacteria None seen None Seen /hpf Urine Glucose Normal Normal mg/dL Test 03/12/25 15:00 Range/Units Lactic Acid Level 1.1 0.4-2.0 mmol/L Total Bilirubin 1.0 0.2-1.0 mg/dL Aspartate Amino Transferase (AST) 23 13-40 U/L Alanine Aminotransferase (ALT) 39 7-40 U/L Alkaline Phosphatase 65 46-116 U/L B-Type Natriuretic Peptide 37.55 0-100 pg/mL Total Protein 7.0 5.7-8.2 g/dL Albumin 4.3 3.2-4.8 g/dL Assessment acute cva hx of dva obesit RBBB htn HL Plan/Recommendation cta pending asa, statin ?plavix defer to neuro outpt holter check echo Plan discussed with: Patient TAY ADAM MD Mar 13, 2025 12:27
[2025-03-13] MEDS ORDERED: SODIUM CHLORIDE 0.9% 1,000 ML IV SCH (12:30)
[2025-03-13] MEDS ORDERED: IOHEXOL 350 MG/ML 100ML IJ ONE (14:00)
--- NOTE | 2025-03-13 14:37 | DVH ---
CLINICAL INFORMATION: Acute CVA. TECHNIQUE: Axial CTA images of the head and neck were obtained after the uneventful administration o f 100 mL Omnipaque 350 IV contrast. Coronal and sagittal reformatted images and MIP images were obtai fidel, reviewed, and stored. Measurements of carotid stenosis are made per NASCET criteria. All CT scan s at this medical facility are performed using dose modulation techniques as appropriate to a perform ed exam including the following: Automated exposure control was utilized; adjustment of the MA and/or KV according to patient size; and use of iterative reconstruction technique. CTDIvol = 22.4, 23.29, 0.14 mGy DLP = 884.01 mGy-cm COMPARISON: MRI BRAIN HEAD WO CONTRAST on DOS: 03/13/25, CT BRAIN/HEAD WO on DOS: 11/16/24, CT BRAIN/HE AD WO on DOS: 09/21/24 FINDINGS: CTA HEAD: Posterior cerebral arteries, basilar artery, and intracranial segments of the distal verteb ral arteries are normal in caliber and course with no evidence of aneurysm, large vessel occlusion, s ignificant stenosis, or vascular malformation. The anterior and middle cerebral arteries and intracra nial segments of the distal internal carotid arteries are normal in caliber and course with no eviden ce of aneurysm, large vessel occlusion, significant stenosis, or vascular malformation. CTA NECK: Normal configuration of the aortic arch with patent origins of the brachiocephalic artery, left common carotid artery, and left subclavian artery. Subclavian arteries are patent with no signif icant stenosis. There is mild calcified plaque at the carotid bifurcations and proximal internal see tid arteries bilaterally without significant stenosis. The bilateral common carotid, internal carotid , and external carotid arteries are otherwise patent with no significant stenosis or evidence of diss ection. Vertebral arteries are patent with no significant stenosis or evidence of dissection. Small p atchy airspace opacity in the right lung apex, likely infectious or inflammatory in nature. Multileve l moderate to severe disc space narrowing of the cervical spine with associated endplate sclerosis an d endplate spurring. Multilevel facet and uncinate hypertrophy with areas of moderate neural foramina l stenosis. IMPRESSION: 1. CTA head demonstrates no evidence of large vessel occlusion, aneurysm, or significant stenosis. 2. CTA neck demonstrates no evidence of carotid or vertebral dissection or significant stenosis. 3. Small patchy airspace opacity in the right lung apex, may be infectious or inflammatory in nature. Correlate with clinical findings. 4. Additional findings as detailed above.
[2025-03-13] MEDS: ASPirin-EC 325mg tab PO SCH (16:13)
[2025-03-13] MEDS: CLOPIDOGREL BISULFATE 75 MG TAB PO ONE (16:14)
[2025-03-13] MEDS: DONEPEZIL HYDROCHLORIDE 5 MG TAB PO SCH (18:00)
[2025-03-13] MEDS: MECLIZINE HCL 25 MG TAB PO PRN (18:25)
--- NOTE | 2025-03-13 20:40 | DVHINCON2 ---
Date of service: Mar 13, 2025 Referring Physician TAMIA Hill Reason for Consultation Acute hypoxic respiratory failure, COPD and pneumonia History of Present Illness A 70-year-old man with past medical history of COPD, CVA with peripheral visual deficits and dementia who presented to ED on 03/12/25 with complaints of dizziness since the morning. Patient also c/o difficulty moving his left arm, which subsequently resolved. On arrival to the ED, he was noted to be tachycardic in the 120s and hypoxic with oxygen saturation 86% on room air, requiring supplemental oxygen. Patient reports difficulty with ambulation due to dizziness, although at baseline he is able to ambulate independently. Reports being recently diagnosed with a cerebral blood clot about 3-4 months ago, being followed by neurology. ED workup showed CMP unremarkable with Na 137, K4.6, BUN 10, creatinine 1.05. BNP 37.5, troponin negative . CBC W13.2, H&H 14.2/42.5, PLT 146 UA negative for infection. CXR shows no acute cardiopulmonary disease. CT angio, lung windows, showing small patchy opacities in the right lung apex. Head CT shows no acute territorial infarct, intracranial hemorrhage or mass effect. Chronic right parieto-occipital infarct with associated serpiginous hyperdensity, described on prior report though no images available for comparison. Patient was admitted for further care. Pulmonary consultation is requested for evaluation and management of acute hypoxic respiratory failure, COPD and pneumonia. Review of Systems: 14-point review of systems negative unless otherwise noted above. Past Medical History: COPD, CVA with peripheral visual deficits and dementia Past Surgical History: None Medications: Reviewed. Allergies: Atorvastatin Family History: Mother with TIA. Social History: Nonsmoker. No alcohol or illicit drug use. Family History: TIAs G8 MOTHER Allergies: Coded Allergies: Atorvastatin (Verified Allergy, Unknown, 03/12/25) Home Meds Active Scripts Clopidogrel Bisulfate (CLOPIDOGREL) 75 Mg Tab, 75 MG PO DAILY for 20 Days, #20 TAB Prov:GRACIA BUTTS MD 03/14/25 Aspirin (Aspir-Low) 81 Mg Tab, 81 MG PO DAILY, #60 TAB Prov:GRACIA BUTTS MD 03/14/25 Methocarbamol (Methocarbamol) 750 Mg Tab, 750 MG PO QHSP PRN, #20 TAB Prov:MIRZA INFANTE 08/13/22 Reported Medications Propranolol HCl (Propranolol Hydrochloride) 10 Mg Tab, 1 TAB PO DAILY PRN for 90 Days, #90 TAKE 1 TABLET BY MOUTH DAILY, NEEDED, MAX DAILY DOSE 1 TABLET. 03/14/25 Ezetimibe (Ezetimibe) 10 Mg Tab, 1 TAB PO DAILY for 90 Days, #90 03/14/25 Amitriptyline HCl (Amitriptyline Hydrochlori) 25 Mg Tab, 1 TAB PO UD for 30 Days, #90 03/14/25 Sumatriptan Succinate (Sumatriptan Succinate) 100 Mg Tab, 1 TAB PO UD for 25 Days, #10 03/14/25 Memantine Hydrochloride (Memantine HCl) 10 Mg Tab, 1 TAB PO UD for 90 Days, #180 03/14/25 Donepezil Hydrochloride (DONEPEZIL HCL) 10 Mg Tab, 1 TAB PO UD for 90 Days, #90 03/14/25 Current Medications Current Medications Medications (Trade) Dose Ordered Sig/Suzanne Route PRN Reason Start Time Stop Time Status Last Admin Sodium Chloride 1,000 ml @ 50 mls/hr Q20H IV 03/12/25 23:00 03/13/25 12:32 DC Acetaminophen (Tylenol Tablet) 650 mg Q6HP PRN PO PAIN SCALE 1-3 OR TEMP>100.4 03/12/25 23:00 Ondansetron HCl (Zofran) 4 mg Q4HP PRN IV NAUSEA / VOMITING 03/12/25 23:00 Morphine Sulfate 2 mg Q4HPRN PRN IV SEVERE PAIN (7-10 PAIN SCALE) 03/12/25 23:00 Nitroglycerin (Ntrostat Sublingual) 0.4 mg Q5MINP PRN SL FOR CHEST PAIN 03/12/25 23:00 Morphine Sulfate 2 mg Q30M PRN IV FOR CHEST PAIN 03/12/25 23:00 Meclizine HCl (Antivert Tablet) 25 mg Q8HPRN PRN PO dizziness 03/12/25 23:00 03/13/25 18:25 Donepezil HCl (Aricept Tablet) 10 mg QPM PO 03/13/25 18:00 Memantine (Namenda Tablet) 10 mg BID PO 03/13/25 10:00 03/13/25 10:09 Ipratropium [place] (Atrovent Medneb) 0.5 mg Q4HPRN PRN NEB SHORTNESS OF BREATH 03/13/25 01:00 Albuterol (Ventolin Medneb) 2.5 mg Q4HPRN PRN NEB SHORTNESS OF BREATH 03/13/25 01:00 Ceftriaxone Sodium 50 ml @ 100 mls/hr DAILY@09 IV 03/13/25 09:00 03/13/25 10:09 Sodium Chloride 1,000 ml @ 50 mls/hr Q20H IV 03/13/25 12:30 03/13/25 15:55 DC Sodium Chloride 1,000 ml @ 120 mls/hr Q8H20M IV 03/13/25 16:00 03/14/25 00:19 03/13/25 16:14 Aspirin (Ecotrin Enteric Coated Tablet) 325 mg DAILY PO 03/13/25 16:00 03/13/25 16:13 Clopidogrel Bisulfate (Plavix) 75 mg DAILY PO 03/14/25 10:00 Vital Signs Vital Signs Date Time Temp Pulse Resp B/P (MAP) Pulse Ox O2 Delivery O2 Flow Rate FiO2 03/13/25 17:00 97.6 71 17 123/77 (92) 91 97.6 03/13/25 10:00 Nasal Cannula 2.0 03/13/25 10:00 28 Physical Exam Gen.: Patient lying in bed in no apparent distress. On supplemental oxygen. Head: Normocephalic, atraumatic. Eyes: EOMI/PERRLA. Ears: Normal hearing. Normal anatomy. Neck/trachea: Trachea midline, supple. Nose: Normal external anatomy. Mouth: Moist mucous membranes. Chest: Decreased air entry bilaterally. No wheezing or rhonchi. Cardiovascular: Positive S1, positive S2. Regular rate and rhythm. Abdomen: Positive bowel sounds in all 4 quadrants. Soft, non-tender, non- distended. : Deferred. Rectal: Deferred. Skin: Warm, dry. Intact. Extremities: 2+ radial pulses bilaterally. No lower extremity edema. Neuro: Awake, alert, oriented x3. No gross motor or sensory deficits. Cranial nerves II through XII intact. Gait not assessed. Labs/Diagnostic Data Labs Test 03/13/25 05:58 03/12/25 18:31 03/12/25 17:41 03/12/25 16:52 Range/Units White Blood Count 11.4 H 4.4-10.8 10^3/uL Red Blood Count 4.50 4.5-5.90 10^6/uL Hemoglobin 14.1 13.5-17.5 g/dL Hematocrit 41.6 41.0-53.0 % Mean Corpuscular Volume 92.5 80.0-100.0 fL Mean Corpuscular Hemoglobin 31.3 28.0-32.0 pg Mean Corpuscular Hemoglobin Concent 33.9 32.0-36.0 g/dL Red Cell Distribution Width 14.3 11.8-14.3 % Platelet Count 146 140-450 10^3/uL Mean Platelet Volume 8.1 6.9-10.8 fL Neutrophils (%) (Auto) 51.3 37.0-80.0 % Lymphocytes (%) (Auto) 37.6 10.0-50.0 % Monocytes (%) (Auto) 9.6 0.0-12.0 % Eosinophils (%) (Auto) 1.2 0.0-7.0 % Basophils (%) (Auto) 0.3 0.0-2.0 % Neutrophils # (Auto) 5.8 1.6-8.6 10 ^3/uL Lymphocytes # (Auto) 4.3 0.4-5.4 10 ^3/uL Monocytes # (Auto) 1.1 0-1.3 10 ^3/uL Eosinophils # (Auto) 0.1 0-0.8 10 ^3/uL Basophils # (Auto) 0 0-0.2 10 ^3/uL Nucleated Red Blood Cells 0.1 % Sodium Level 139 136-145 mmol/L Potassium Level 5.1 3.5-5.1 mmol/L Chloride Level 105 98-107 mmol/L Carbon Dioxide Level 26 20-31 mmol/L Anion Gap 8 5-15 Blood Urea Nitrogen 9 9-23 mg/dL Creatinine 0.99 0.700-1.30 mg/dL Glomerular Filtration Rate Calc 82 >90 mL/min BUN/Creatinine Ratio 9.1 L 10.0-20.0 Serum Glucose 124 H 74-106 mg/dL Calcium Level 9.1 8.7-10.4 mg/dL Troponin I High Sensitivity < 3 L </=54 ng/L Blood Gas Specimen Type Arterial Blood Gas Sample Site Right radial Blood Gas Patient Temperature 37.0 Arterial Blood Date Drawn [id number] Arterial Blood pH 7.466 H 7.350-7.450 Arterial Blood Partial Pressure CO2 29.4 L 35.0-48.0 mmHg Arterial Blood Partial Pressure O2 64.2 L 83.0-108.0 mmHg Arterial Blood HCO3 20.7 L 21.0-28.0 mmol/L Arterial Blood Oxygen Saturation 93.6 L 94.0-98.0 % Arterial Blood Base Excess -1.7 -2.0-3.0 mmol/L Arterial Blood Oxyhemoglobin 91.9 L 94.0-98.0 % Arterial Blood Carboxyhemoglobin 1.3 0.5-1.5 % Arterial Blood Methemoglobin 0.5 0.0-1.5 % Blake Test Modified Blood Gas Total Hemoglobin 15.20 13.5-17.5 g/dL Blood Gas Liter Flow 2.00 Blood Gas Modality Nasal cannula FiO2 % 28.0 Urine Color Light-yellow Yellow Urine Clarity Clear Clear Urine pH 6.5 5.0-9.0 Urine Specific [place] 1.010 1.001-1.035 Urine Protein Negative Negative Urine Ketones Negative Negative Urine Blood Negative Negative /uL Urine Nitrite Negative Negative Urine Bilirubin Negative Negative Urine Urobilinogen Normal Negative mg/dL Urine Leukocyte Esterase Negative Negative /uL Urine RBC None seen 0 - 3 /hpf Urine Microscopic WBC 1 0-3 /HPF Urine Squamous Epithelial Cells Few <5 /hpf Urine Bacteria None seen None Seen /hpf Urine Glucose Normal Normal mg/dL Test 03/12/25 15:00 Range/Units Lactic Acid Level 1.1 0.4-2.0 mmol/L Total Bilirubin 1.0 0.2-1.0 mg/dL Aspartate Amino Transferase (AST) 23 13-40 U/L Alanine Aminotransferase (ALT) 39 7-40 U/L Alkaline Phosphatase 65 46-116 U/L B-Type Natriuretic Peptide 37.55 0-100 pg/mL Total Protein 7.0 5.7-8.2 g/dL Albumin 4.3 3.2-4.8 g/dL Assessment Impression: Acute hypoxic respiratory failure Chronic obstructive pulmonary disease Obesity BMI 36.9 Acute on chronic CVA History of nicotine dependence Right lung apex pneumonia Leukocytosis Atelectasis Alzheimer's dementia Plan: ABG reviewed. Alkalemia due to respiratory alkalosis Chest x-ray shows no acute opacities. CT head shows no intracranial hemorrhage. Chronic ischemic changes. CT angio, lung windows: small patchy opacities in the right lung apex. Follow up Echocardiogram Follow up Cardiology recommendations Supplemental oxygen Titrate to keep O2 sats above 92%. Bronchodilators PRN. Continue antibiotics Send sputum if able to obtain Incentive spirometry for atelectasis Monitor renal function. Monitor electrolytes. Supplement as necessary. Monitor ins and outs. Diet and lifestyle modifications for weight reduction Obesity complicates all care DVT prophylaxis. Prognosis: Poor given patient's multiple co-morbidities. Rest of plan per hospitalist and other consultants. Thank you, TAMIA Hill, for allowing me to participate in this patient's care. Further recommendations will depend on the patient's clinical course. Please do not hesitate to contact me if you have any questions or concerns. This medical document was created using an electronic medical record system with [employer] dictation system. Although these documentations are being carefully reviewed, there may still be some phonetic and typographical changes. The errors are purely typographical, due to imperfection on the software program, and do not reflect any compromise in the patient's medical care. Plan discussed with: Other () ALEJANDRO EVANS [facility] Mar 13, 2025 20:40
[2025-03-14 01:00] VITALS: BP 110/72; PULSE 89; RESP 19; TEMP 98.1; O2SAT 95
[2025-03-14 05:00] VITALS: BP_SYST 108; BP_SYST 109; BP_DIAS 57; BP_DIAS 74; BP_DIAS 75; PULSE 77; PULSE 83; PULSE 85; RESP 17; TEMP 97.7; O2SAT 66
[2025-03-14 06:40] LABS: Hematocrit 42.1 % (41.0-53.0); Hemoglobin 14.2 g/dL (13.5-17.5); Mean Corpuscular Hemoglobin 31.1 pg (28.0-32.0); Mean Corpuscular Volume 92.5 fL (80.0-100.0); Nucleated Red Blood Cells % 0.3 %
[2025-03-14 07:06] LABS: Anion Gap 10 (5-15); Carbon Dioxide 25 mmol/L (20-31)
[2025-03-14 07:07] LABS: Calcium 9.0 mg/dL (8.7-10.4)
[2025-03-14 07:12] LABS: BUN/Creatinine Ratio 12.0 (10.0-20.0); Blood Urea Nitrogen 11 mg/dL (9-23)
[2025-03-14 07:13] LABS: Chloride 106 mmol/L (98-107); Glucose 125 mg/dL (74-106); Potassium 4.4 mmol/L (3.5-5.1); Sodium 141 mmol/L (136-145)
[2025-03-14 08:00] VITALS: PULSE 77
[2025-03-14 09:00] VITALS: BP 118/89; PULSE 81; RESP 16; TEMP 97.9; O2SAT 93
[2025-03-14 09:47] VITALS: O2SAT 98
[2025-03-14 10:30] VITALS: O2SAT 93
[2025-03-14] MEDS: CLOPIDOGREL BISULFATE 75 MG TAB PO SCH (10:53)
[2025-03-14] MEDS ORDERED: CLOP75TA70 PO (12:51)
[2025-03-14] MEDS ORDERED: ASPI-543 PO (12:51)
--- NOTE | 2025-03-14 13:43 | DVHDS2 ---
Discharge Summary Date of Admission Mar 12, 2025 at 23:00 Date of Discharge: Mar 14, 2025 Labs/Diagnostic Data: Laboratory Results Test 03/14/25 05:23 03/12/25 18:31 03/12/25 17:41 03/12/25 16:52 White Blood Count 8.3 10^3/uL (4.4-10.8) Red Blood Count 4.55 10^6/uL (4.5-5.90) Hemoglobin 14.2 g/dL (13.5-17.5) Hematocrit 42.1 % (41.0-53.0) Mean Corpuscular Volume 92.5 fL (80.0-100.0) Mean Corpuscular Hemoglobin 31.1 pg (28.0-32.0) Mean Corpuscular Hemoglobin Concent 33.7 g/dL (32.0-36.0) Red Cell Distribution Width 14.2 % (11.8-14.3) Platelet Count 150 10^3/uL (140-450) Mean Platelet Volume 8.7 fL (6.9-10.8) Neutrophils (%) (Auto) 43.8 % (37.0-80.0) Lymphocytes (%) (Auto) 42.6 % (10.0-50.0) Monocytes (%) (Auto) 10.5 % (0.0-12.0) Eosinophils (%) (Auto) 2.6 % (0.0-7.0) Basophils (%) (Auto) 0.5 % (0.0-2.0) Neutrophils # (Auto) 3.6 10 ^3/uL (1.6-8.6) Lymphocytes # (Auto) 3.5 10 ^3/uL (0.4-5.4) Monocytes # (Auto) 0.9 10 ^3/uL (0-1.3) Eosinophils # (Auto) 0.2 10 ^3/uL (0-0.8) Basophils # (Auto) 0 10 ^3/uL (0-0.2) Nucleated Red Blood Cells 0.3 % Sodium Level 141 mmol/L (136-145) Potassium Level 4.4 mmol/L (3.5-5.1) Chloride Level 106 mmol/L (98-107) Carbon Dioxide Level 25 mmol/L (20-31) Anion Gap 10 (5-15) Blood Urea Nitrogen 11 mg/dL (9-23) Creatinine 0.92 mg/dL (0.700-1.30) Glomerular Filtration Rate Calc 89 mL/min (>90) BUN/Creatinine Ratio 12.0 (10.0-20.0) Serum Glucose 125 mg/dL (74-106) Calcium Level 9.0 mg/dL (8.7-10.4) Troponin I High Sensitivity < 3 ng/L (</=54) Blood Gas Specimen Type Arterial Blood Gas Sample Site Right radial Blood Gas Patient Temperature 37.0 Arterial Blood Date Drawn [id number] Arterial Blood pH 7.466 (7.350-7.450) Arterial Blood Partial Pressure CO2 29.4 mmHg (35.0-48.0) Arterial Blood Partial Pressure O2 64.2 mmHg (83.0-108.0) Arterial Blood HCO3 20.7 mmol/L (21.0-28.0) Arterial Blood Oxygen Saturation 93.6 % (94.0-98.0) Arterial Blood Base Excess -1.7 mmol/L (-2.0-3.0) Arterial Blood Oxyhemoglobin 91.9 % (94.0-98.0) Arterial Blood Carboxyhemoglobin 1.3 % (0.5-1.5) Arterial Blood Methemoglobin 0.5 % (0.0-1.5) Blake Test Modified Blood Gas Total Hemoglobin 15.20 g/dL (13.5-17.5) Blood Gas Liter Flow 2.00 Blood Gas Modality Nasal cannula FiO2 % 28.0 Urine Color Light-yellow (Yellow) Urine Clarity Clear (Clear) Urine pH 6.5 (5.0-9.0) Urine Specific [place] 1.010 (1.001-1.035) Urine Protein Negative (Negative) Urine Ketones Negative (Negative) Urine Blood Negative /uL (Negative) Urine Nitrite Negative (Negative) Urine Bilirubin Negative (Negative) Urine Urobilinogen Normal mg/dL (Negative) Urine Leukocyte Esterase Negative /uL (Negative) Urine RBC None seen /hpf (0 - 3) Urine Microscopic WBC 1 /HPF (0-3) Urine Squamous Epithelial Cells Few /hpf (<5) Urine Bacteria None seen /hpf (None Seen) Urine Glucose Normal mg/dL (Normal) Test 03/12/25 15:00 Lactic Acid Level 1.1 mmol/L (0.4-2.0) Total Bilirubin 1.0 mg/dL (0.2-1.0) Aspartate Amino Transferase (AST) 23 U/L (13-40) Alanine Aminotransferase (ALT) 39 U/L (7-40) Alkaline Phosphatase 65 U/L (46-116) B-Type Natriuretic Peptide 37.55 pg/mL (0-100) Total Protein 7.0 g/dL (5.7-8.2) Albumin 4.3 g/dL (3.2-4.8) Other Laboratory Tests 03/14/25 05:23 Brief Hx & Hospital Course: 70-year-old male with a known history of COPD, previous history of tobacco use disorder 50 pack year history quit two years ago, Alzheimer dementia who presented to the hospital with a dizziness and vertigo since 11:30 a.m. day before admission found to have dizziness with a orthostatic hypotension positive. Patient was ruled in for acute stroke as he had a small infarct in the right occipital temporal region. Patient's denies focal neuro deficit. Patient did come positive for orthostatic hypotension eventually was given IV hydration and thigh-high Derrick hose.. Currently cleared to be discharged on aspirin and Plavix as recommended. No statin as patient's has severe allergy in in the form of severe visual hallucinations . Risk of stroke explained to the patient in detail while he is not on statin patient is currently understand verbalized understanding and agreeable to plan. Condition at Discharge: Stable Final Diagnosis/Problems List 70-year-old male with a known history of COPD, previous history of tobacco use disorder 50 pack year history quit two years ago, Alzheimer dementia who presented to the hospital with a dizziness and vertigo since 11:30 a.m. yesterday found to have 1. Dizziness with orthostatic hypotension 2. Acute on chronic CVA without any residual deficit 3. COPD currently not in exacerbation 4. Alzheimer dementia 5. Previous history of tobacco use disorder quit two years ago Discharge Disposition: Home with [facility] Discharge Will this Physician continue t: No Discharge Instruct/Medications Diet: Cardiac 2g Na,low cholest Activity: No Restrictions, As Tolerated Follow Up/Referral: Follow up with the PCP in one week Follow up with Dr. Jamila Herron in 1-2 weeks Follow up with the gastro group for outpatient EGD as scheduled. Medications: Aspirin, Plavix New Medications: Aspirin (Aspir-Low) 81 Mg Tab 81 MG PO DAILY, #60 TAB Clopidogrel Bisulfate (Clopidogrel) 75 Mg Tab 75 MG PO DAILY for 20 Days, #20 TAB Continued Medications: Methocarbamol (Methocarbamol) 750 Mg Tab 750 MG PO QHSP PRN, #20 TAB Scheduled Aspirin (Aspir-Low), 81 MG PO DAILY Clopidogrel Bisulfate (Clopidogrel), 75 MG PO DAILY Scheduled PRN Methocarbamol (Methocarbamol), 750 MG PO QHSP PRN Discharge Statement: "Patient was advised to return to the ER or call 911 if any headaches, dizziness, shortness of breath, chest pain, abdominal pain, bleeding, fevers, or worsening of medical condition. Patient was counseled about treatment plan, medications, possible side effects, patientverbalized understanding. All questions were answered to the best of my ability. This discharge took greater then 30 minutes in planning, reviewing documentation, counseling the patient, and discussing with other team members." ASSESSMENT ASSESSMENT Assessment 70-year-old male with a known history of COPD, previous history of tobacco use disorder 50 pack year history quit two years ago, Alzheimer dementia who presented to the hospital with a dizziness and vertigo since 11:30 a.m. yesterday found to have 1. Dizziness with orthostatic hypotension 2. Acute on chronic CVA without any residual deficit 3. COPD currently not in exacerbation 4. Alzheimer dementia 5. Previous history of tobacco use disorder quit two years ago Date of Service: Mar 14, 2025 Billing Provider: GRACIA BUTTS MD Common Visit Codes: NOT BILLABLE GRACIA BUTTS MD Mar 14, 2025 13:43
--- NOTE | 2025-03-14 23:46 | DVHPN2 ---
Progress Note - Dictate Date Seen: Mar 14, 2025 Medical Necessity Reason Pt with a Central, PICC or Fol: No Subjective Patient seen and examined at bedside. Breathing comfortably on room air. Overnight events reviewed. vital signs Vital Sign Date Time Temp Pulse Resp B/P (MAP) Pulse Ox O2 Delivery O2 Flow Rate FiO2 03/14/25 10:30 93 Room Air* 0 21 03/14/25 09:00 97.9 81 16 118/89 (99) 97.9 Total Intake and Output 03/13/25 03/13/25 03/14/25 15:00 23:00 07:00 Intake Total 50 ml 550 ml 520 ml Output Total 1 ml Balance 50 ml 550 ml 519 ml objective Gen.: Patient lying in bed in no apparent distress. Breathing on room air. Head: Normocephalic, atraumatic. Eyes: EOMI/PERRLA. Ears: Normal hearing. Normal anatomy. Neck/trachea: Trachea midline, supple. Nose: Normal external anatomy. Mouth: Moist mucous membranes. Chest: Decreased air entry bilaterally. No wheezing or rhonchi. Cardiovascular: Positive S1, positive S2. Regular rate and rhythm. Abdomen: Positive bowel sounds in all 4 quadrants. Soft, non-tender, non- distended. : Deferred. Rectal: Deferred. Skin: Warm, dry. Intact. Extremities: 2+ radial pulses bilaterally. No lower extremity edema. Neuro: Awake, alert, oriented x3. No gross motor or sensory deficits. Cranial nerves II through XII intact. Gait not assessed. laboratory and microbiology Laboratory Tests 03/14/25 05:23 Test 03/14/25 05:23 Range/Units Serum Glucose 125 H 74-106 mg/dL Assessment/Plan Impression: Acute hypoxic respiratory failure Chronic obstructive pulmonary disease Obesity BMI 36.9 Acute on chronic CVA History of nicotine dependence Right lung apex pneumonia Leukocytosis Atelectasis Alzheimer's dementia Events: Tapered off O2, breathing on room air Supplemental oxygen PRN No new complaints. Complete antibiotics Continue bronchodilators PRN Incentive spirometry Recommend followup in Pulmonary Clinic as outpatient. Labs and imaging reviewed. Rest of plan as noted below. Plan: ABG reviewed. Alkalemia due to respiratory alkalosis Chest x-ray shows no acute opacities. CT head shows no intracranial hemorrhage. Chronic ischemic changes. CT angio, lung windows: small patchy opacities in the right lung apex. Follow up Echocardiogram Follow up Cardiology recommendations Supplemental oxygen PRN Titrate to keep O2 sats above 92%. Bronchodilators PRN. Continue antibiotics Send sputum if able to obtain Incentive spirometry for atelectasis Monitor renal function. Monitor electrolytes. Supplement as necessary. Monitor ins and outs. Diet and lifestyle modifications for weight reduction Obesity complicates all care DVT prophylaxis. Prognosis: Poor given patient's multiple co-morbidities. Rest of plan per hospitalist and other consultants. Thank you, TAMIA Hill, for allowing me to participate in this patient's care. Further recommendations will depend on the patient's clinical course. Please do not hesitate to contact me if you have any questions or concerns. This medical document was created using an electronic medical record system with [employer] computerized dictation system. Although these documentations are being carefully reviewed, there may still be some phonetic and typographical changes. The errors are purely typographical, due to imperfection on the software program, and do not reflect any compromise in the patient's medical care. Plan discussed with: Patient, Other () ALEJANDRO EVANS [facility] Mar 14, 2025 23:46
--- NOTE | 2025-03-16 13:50 | DVHSR ---
APPROVED REPORT EXAM: Two-dimensional and M-mode echocardiogram with Doppler and color Doppler with Bubble study. Blood Pressure: 109/74 mmHg INDICATION Acute CVA RISK FACTORS Height: 69, Weight: 249 DIMENSIONS LVDd (3.8-5.7cm)LA (2D) (1.9-4.0cm)Aortic Root4.5 (2.0-3.7cm) LVDs (2.5-4.0cm)LA (MM) (1.9-4.0cm)Aortic Cusp Exc1.8 (1.5-2.0cm) EF (%) 51.0 (55-70%)Rt. Atrium (1.9-4.0cm)Asc. Aorta cm Mitral Valve MitralMitral Stenosis E wave0.75m/sMV Mean GR.mmHg A wave0.96m/sMV Peak GR.mmHg E/A ratio0.82D MVAcm2 DECEL [id number] 1/2 [id number] IVRTmsDop MVA3.53cm2 Aortic Valve Aortic ValveAortic Stenosis V10.90m/Aiden Mean GR.4mmHg V21.30m/Aiden Peak GR.7mmHg LVOT Diameter2.3 (1.8-2.4cm)Doppler AVA2.87cm2 Pulmonic Valve V20.83m/s Tricuspid Valve TR Velocity2.47m/s [id number] Other Information Technically limited study due to body habitus, patient position and patient sensitive to touch. Bubb le study performed. Images for bubble study are the last couple images. Conclusion lvef 40-45% moderate LVH RV enlarged and dyskinetic right atrium enlarged
== END 2025-03-14 15:55 | disposition home or self-care (01) | DRG 64 ==
LOC: EDBD 14:12 → ER 14:12 → EDUNIT# 14:12 → OVERFLOW 23:00 → TELE-CENTR 03-13 04:11
PROVIDERS: ADMIT Nurse Practitioner Family; ATTEND Nurse Practitioner Family
DX: I63.9 Cerebral infarction, unspecified (principal); J96.21 Acute and chronic respiratory failure with hypoxia; J98.11 Atelectasis; I95.1 Orthostatic hypotension; I45.10 Unspecified right bundle-branch block; I10 Essential (primary) hypertension; G30.9 Alzheimer's disease, unspecified; E66.9 Obesity, unspecified; E78.5 Hyperlipidemia, unspecified; J44.9 Chronic obstructive pulmonary disease, unspecified; F02.80 Dementia in other diseases classified elsewhere, unspecified severity, without behavioral disturbance, psychotic disturbance, mood disturbance, and anxiety; Z68.36 Body mass index [BMI] 36.0-36.9, adult; I69.391 Dysphagia following cerebral infarction; Z87.891 Personal history of nicotine dependence; Z88.8 Allergy status to other drugs, medicaments and biological substances; I69.312 Visuospatial deficit and spatial neglect following cerebral infarction; Z79.899 Other long term (current) drug therapy
CPT/HCPCS: 36415; 36600; 70450; 70496; 70498; 70551; 71045; 80048; 80053; 81001; 82805; 83605; 83880; 84484; 85025; 87040; 93005; 93306; 96361; 96365; 97110; 97116; 97163; 97530; G0378